=== PATIENT | male | born 1975 | race Caucasian/White ===

== ENCOUNTER 2016-10-20 19:19 | Emergency (ER) | payer OTHER ==
[2016-10-20 21:07] LABS: HEMOGLOBIN 14.9 gm/dl (14.0-17.5); RED BLOOD COUNT 4.96 M/UL (4.20-5.50); WHITE BLOOD COUNT 9.8 K/UL (4.5-11.0)
[2016-10-20 21:26] LABS: BUN/CREATININE RATIO 6 (0-10)
== END 2016-10-20 22:20 | disposition home or self-care (01) ==
LOC: ER1 19:19
PROVIDERS: Family Medicine
DX: M54.9 Dorsalgia, unspecified (principal); G89.29 Other chronic pain; R05 Cough; R06.00 Dyspnea, unspecified; I10 Essential (primary) hypertension; Z87.891 Personal history of nicotine dependence
CPT/HCPCS: 36415; 71020; 80053; 82550; 82553; 83874; 84484; 85025; 93005; 96374; 99285; J2930

== ENCOUNTER → 2016-10-31 | Outpatient (CLI) | payer OTHER | LOC: CT 08:04 | DX: R06.00 Dyspnea, unspecified (principal); R07.9 Chest pain, unspecified; R93.8 Abnormal findings on diagnostic imaging of other specified body structures; R91.8 Other nonspecific abnormal finding of lung field | CPT/HCPCS: 36415; 71260; 82565; 84520; J7050; Q9962 ==

== ENCOUNTER → 2017-01-06 | Outpatient (CLI) | payer OTHER | LOC: HEART 5 14:06 | DX: R06.00 Dyspnea, unspecified (principal); F17.210 Nicotine dependence, cigarettes, uncomplicated | CPT/HCPCS: 94060; 94729 ==

== ENCOUNTER 2021-01-18 16:19 | Emergency (ER) | payer OTHER ==
[~2021-01-18 16:19] MED LIST: ASPIRIN CHEWABL81 MG PO
== END 2021-01-18 17:35 | disposition home or self-care (01) ==
LOC: ER1 16:19
DX: K02.9 Dental caries, unspecified (principal); I10 Essential (primary) hypertension
CPT/HCPCS: 96372; 99283; J1885

== ENCOUNTER 2022-02-10 20:48 | Emergency (ER) | payer OTHER ==
[2022-02-10 22:27] LABS: HEMOGLOBIN 16.1 gm/dl (14.0-17.5); RED BLOOD COUNT 5.16 M/UL (4.20-5.50); WHITE BLOOD COUNT 18.8 K/UL (4.5-11.0)
[2022-02-10 22:33] LABS: BUN/CREATININE RATIO 8 (0-10)
[2022-02-10] MEDS ORDERED: ONDANSETRON ODT4 MG SL (23:27)
== END 2022-02-10 23:35 | disposition home or self-care (01) ==
LOC: ER1 20:48
PROVIDERS: Physician Assistant
DX: R55 Syncope and collapse (principal); S22.089A Unspecified fracture of T11-T12 vertebra, initial encounter for closed fracture; S00.81XA Abrasion of other part of head, initial encounter; Z23 Encounter for immunization; R11.2 Nausea with vomiting, unspecified; I10 Essential (primary) hypertension; F17.200 Nicotine dependence, unspecified, uncomplicated; Z79.899 Other long term (current) drug therapy; W22.8XXA Striking against or struck by other objects, initial encounter
CPT/HCPCS: 70450; 72131; 80053; 81001; 82550; 82553; 84484; 85025; 90471; 90715; 93005; 99284